=== PATIENT | male | born 1970 | race Caucasian/White ===

== ENCOUNTER 2019-07-09 05:04 | Emergency (ER) | payer SELFPAY ==
[2019-07-09] VITALS (17 sets, daily range): BP systolic 107–144; BP diastolic 69–88; PULSE 62–91; RESP 10–24; TEMP 36.3; O2SAT 80–97
--- NOTE | 2019-07-09 05:00 | DI.CT_ITS ---
EXAM: CT HEAD CERVICAL SPINE WO COMPARISON: No exams were available for comparison FINDINGS: CT examination of the cervical spine was performed without contrast administration. Moderate cervica l kyphosis noted. There is no evidence of acute cervical spine fracture or dislocation. Tracheolaryn geal structures appear intact. No cervical mass or adenopathy. Intervertebral disc spaces are well ma intained. Noncontrast cranial CT was performed. Subcutaneous hematoma noted, left vertex. Ventricular system is normal in appearance. No evidence of acute intracranial hemorrhage, mass effect, or midline shift. No calvarial fracture. The orbital and temporal bone structures appear intact. IMPRESSION: No evidence of acute cervical spine injury. No evidence of acute intracranial injury. RADIATION DOSE DELIVERED: 1,123.51mGy.cm Total DLP DATA REPOSITORY: All CT scans at this facility are submitted to the National Radiology Data Registry (NRDR) Dose Index Registry (DIR) with the [employer] (A[employer]). RADIATION OPTIMIZATION: All CT scans at this facility use at least one of these dose optimization te chniques: automated exposure control; mA and/or kV adjustment per patient size (includes targeted exa ms where dose is matched to clinical indication); or iterative reconstruction.
--- NOTE | 2019-07-09 05:20 | W.ED.GENAD ---
Discharge Plan Disposition Patient Disposition: HOME Condition: Stable Discharge Details Chief Complaint: HeadInjury Clinical Impression: Laceration of head, Fall ED Provider: Cholo Washington Home Meds and New Rx's Prescriptions: Continued pseudoephedrine-guaifenesin [Mucinex D] 60-600 mg Tablet Extended Release 12 Hr 1 tab PO RF: 0 Discharge Instructions Instructions: Staple Care (ED) Additional Instructions: you had ann-marie placed in your scalp. return in 10 days for evaluation for removal if you have yellow/white discharge from the wound or spreading redness return to the emergency department for reevaluation I placed you on our follow up list to get set up with a primary care provider for discussion on evaluation for sleep apnea Medical Decision Making 49 yo male who denies any chronic medical problems comes in with chief complaint of head laceration. The patient was driven in by his friend because he sustained a head laceration. He arrives oriented x4 but takes multiple times asking questions before he answers them and goes off tangentially and then won't answer some questions. He has a 6cm laceration on left side of his head. He denies dyspnea, chest pain, n/v. 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 He states he was on the toilet then walked to the bathroom and slipped hitting his head on the glass shower door. He denies loc. HE states he had a few beers no other drugs. His eyes are pinpoint on exam. No focal motor or sensation deficits. Given his presentation with some alteration in mental status will ct head and c spine and also evaluate for alcohol intoxication and drug intoxication and monitor. ct imqaging and labs unremarkable, he has periods of intermittent falling asleep and will respond to painful stimuli to awaken up. I suspect some form of drug abuse likely opiates based on the pupils. Will monitor here until more alert. pt now awake and caox4. no focal deficits. He was having hypoxia to the 80's when asleep that corrected upon awakening and I suspect he has undiagnosed sleep apnea and to f/u with pcp for this and placed on f/u list to get established with someone in the area for this. Advised to return in 10 days for staple removal, return precautions given Differential Diagnosis Differential Diagnosis: tbi, concussion, alcohol intoxication, drug intoxication Imaging Data Radiologic Study: Attestation: I personally reviewed and interpreted this imaging study as follows: Imaging: CT Scan Radiologist's impression: negative head and c spine ct for acute pathology Lab Data Lab results reviewed: Yes I reviewed the patient's lab results. HPI General Mode of arrival: wheelchair. Date/Time Provider Initiated Documentation: 07/09/19 05:07. Information obtained by: patient. History of Present Illness 49 year old M presents to the emergency department with the chief complaint of head laceration, and is localized to the head. Patient reports no radiation. and it has been constant. No relieving factors improve symptom(s), No exacerbating factors reported . Patient did receive the following treatments prior to arrival, none Related Data Home Medications Medication Instructions Recorded Confirmed pseudoephedrine-guaifenesin 1 tab PO 07/09/19 [Mucinex D] General Stated Complaint: HeadInjury SCOTT: 3 Review of Systems All systems reviewed & are unremarkable except as noted in HPI and below Constitutional Constitutional: Denies chills, Denies fever(s) and Denies weakness Cardiovascular Cardiovascular: Denies chest pain and Denies dyspnea Respiratory Respiratory: Denies cough and Denies dyspnea Gastrointestinal Gastrointestinal: Denies abdominal pain, Denies nausea and Denies vomiting Musculoskeletal Musculoskeletal: Denies joint swelling Neurologic Neurologic: Denies weakness Psychiatric Psychiatric: Denies depression [facility] Medical History (Updated 07/09/19 @ 06:39 by Cholo Washington MD) No acute medical problems (Acute) Social History Smoking/Tobacco Use Status: Never Alcohol Intake: current Alcohol Intake frequency: 0-2 drinks per day Drug use: Socially Substance use type: marijuana Additional Social history: patient is altered, unable to answer Exam Const General: no acute distress Orientation: alert HENAR Head: laceration Ears: external ears normal General nose exam: external nose normal Mouth: moist mucous membranes Eyes General: appearance normal, both eyes and all related structures Neck Neck: normal visual inspection Resp Effort & Inspection: normal respiratory effort and able to speak in complete sentences Cardio Rate: regular rate GI Palpation: soft and nontender Skin General skin exam: no rashes or lesions noted Neuro General: patient alert Extrem General: normal to inspection Psych Mental Status: mental status grossly normal Course Vital Signs Vital signs: Vital Signs Temperature 36.3 C L 07/09/19 05:06 Pulse 86 07/09/19 05:06 Respiratory Rate 18 07/09/19 05:06 Blood Pressure 144/88 H 07/09/19 05:06 Pulse Oximetry 96 07/09/19 05:06 Temperature 36.3 C L 07/09/19 05:06 Temperature Source Skin 07/09/19 05:06 Pulse 86 07/09/19 05:06 Respiratory Rate 18 07/09/19 05:06 Blood Pressure 144/88 H 07/09/19 05:06 Pulse Oximetry 96 07/09/19 05:06 Pain Level 10 07/09/19 05:06 Procedures Laceration Laceration 1: Site: scalp Size (cm): 6 Description: linear Depth: simple, single layer Local Anesthetic: Lidocaine 1% and with Epi Amount of anesthesia used (mL): 10 Pre-repair: wound explored and irrigated extensively Skin layer closed with: other (ann-marie) Number of sutures: 16
[2019-07-09 05:27] LABS: Abs Immature Grans 0.01 k/cumm (0.0-0.09); Absolute Basophil Count 0.04 k/cumm (0.0-0.2); Absolute Eosinophil Count 0.31 k/cumm (0.0-0.7); Absolute Lymphocyte Count 2.51 k/cumm (1.2-3.4); Absolute Monocyte Count 0.69 k/cumm (0.11-0.7); Absolute Neutrophil Count 4.87 k/cumm (1.2-6.7); Basophils % 0.5; Eosinophils % 3.7; HCT 39.2 % (40.0-50.0); HGB 12.9 g/dL (13.5-17.5); Immature Grans % 0.1 %; Lymphocytes % 29.8; Mean Corp. HGB Concentration 32.9 g/dL (32.0-36.0); Mean Corpuscular Hemoglobin 29.9 pg (27.0-33.0); Mean Platelet Volume 9.4 fL (8.0-11.0); Monocytes % 8.2; Neutrophils % 57.7; Platelet Count 273 x1000/uL (130-400); RBC 4.31 m/cumm (4.50-6.00); RBC Distribution Width 12.5 % (11.8-14.1); White Blood Cell Count 8.43 k/cumm (4.4-10.8)
[2019-07-09 05:38] LABS: ALT 32 U/L (16-63); AST 27 U/L (15-37); Albumin 3.7 g/dL (3.4-5.0); Alkaline Phosphatase 90 U/L (46-116); Anion Gap 3.2 mmol/L (3-11); BUN 11 mg/dL (7-18); Bilirubin, Total 0.3 mg/dL (0.2-1.0); CO2 31.8 mmol/L (21.0-32.0); CREATININE 1.01 mg/dL (0.70-1.30); Calcium 8.5 mg/dL (8.5-10.1); Chloride 102 mmol/L (98-107); ETHANOL BLOOD 11.8 mg/dL (<3); Glucose 108 mg/dL (74-106); Magnesium 2.1 mg/dL (1.8-2.4); Potassium 3.7 mmol/L (3.5-5.1); Sodium 137 mmol/L (136-145); Total Protein 6.9 g/dL (6.4-8.2)
[2019-07-09 05:47] LABS: PTT Activated 24.5 sec (21.0-31.4); Prothrombin Time 9.6 sec (9.3-11.0)
--- NOTE | 2019-07-09 06:03 | DI.VRAD_ITS ---
PROCEDURE INFORMATION: Exam: CT Head Without Contrast Exam date and time: 07/09/2019 5:37 AM Age: 49 years old Clinical indication: Injury or trauma; Initial encounter; Patient HX: Fall, head lac, altered mental status TECHNIQUE: Imaging protocol: Computed tomography of the head without contrast. COMPARISON: No relevant prior studies available. FINDINGS: Brain: No acute intracranial hemorrhage, mass-effect, midline shift, or extra-axial collection is seen. The [place] white matter differentiation appears preserved. Ventricles: The ventricular system and basilar cisterns appear appropriate in size and configuration. Bones/joints: The bony calvarium appears intact. No depressed skull fracture is seen. Sinuses: The visualized paranasal sinuses appear well-aerated. Mastoid air cells: The visualized mastoid air cells appear well aerated. Auditory system: The middle ear cavities appear clear. Orbits: The globes and intraorbital structures appear grossly intact. Soft tissues: There is a left posterior scalp contusion with an associated laceration. IMPRESSION: No acute intracranial hemorrhage or depressed skull fracture. PROCEDURE INFORMATION: Exam: CT Cervical Spine Without Contrast Exam date and time: 07/09/2019 5:37 AM Age: 49 years old Clinical indication: Injury or trauma; Initial encounter; Patient HX: Fall, head lac, altered mental status TECHNIQUE: Imaging protocol: Computed tomography images of the cervical spine without contrast. COMPARISON: No relevant prior studies available. FINDINGS: Vertebrae: No acute cervical fracture is seen. There is straightening of the normal cervical lordosis. This can be seen in the presence of a cervical collar or may result from muscle spasm or positioning. Discs/Spinal canal/Neural foramina: There is moderate discogenic degeneration at C3-C4 with loss of disc height, anterior osteophyte formation, and posterior osteophytic ridging but no significant central canal narrowing. Soft tissues: Within the limits of the exam, no gross soft tissue fluid collection is seen in the neck. Thyroid: The thyroid gland is not well evaluated but appears grossly normal in size. Lungs: The lung apices appear grossly clear. IMPRESSION: No acute cervical fracture or gross vertebral malalignment. Dictated and Authenticated by: Jesus Coffman MD. Ordering:SYDNEY Emmanuel MD
[2019-07-09] MEDS: Acetaminophen 500 MG TAB (06:55)
== END 2019-07-09 07:02 | disposition home or self-care (01) ==
LOC: ER 06:57
PROVIDERS: Emergency Provider Emergency Medicine
DX: S01.01XA Laceration without foreign body of scalp, initial encounter (principal); W01.110A Fall on same level from slipping, tripping and stumbling with subsequent striking against sharp glass, initial encounter; Y90.0 Blood alcohol level of less than 20 mg/100 ml
CPT/HCPCS: 12002; 36415; 80053; 99284; 70450; 72125; 80320; 83735; 85025; 85610; 85730; 99283

== ENCOUNTER 2019-07-19 21:04 | Emergency (ER) | payer SELFPAY ==
[2019-07-19 21:20] VITALS: BP 132/86; PULSE 101; RESP 19; TEMP 36.7; O2SAT 96
[2019-07-19] MEDS: Lidocaine 5% Patch 2 PATCH TP (21:31)
--- NOTE | 2019-07-19 21:34 | W.ED.GENAD ---
Discharge Plan Disposition Patient Disposition: HOME Condition: Good Discharge Details Chief Complaint: SutureRem Clinical Impression: Removal of ann-marie, Bilateral contusion of ribs Primary Care Provider: Unknown,Unknown ED Provider: Man Gould Home Meds and New Rx's Prescriptions: New lidocaine [Lidoderm] 1 PATCH patch 1 patch Topical Q24H Qty: 4 RF: 0 No Action pseudoephedrine-guaifenesin [Mucinex D] 60-600 mg Tablet Extended Release 12 Hr 1 tab PO RF: 0 Discharge Instructions Instructions: Rib Contusion (ED) Additional Instructions: The laceration on your scalp has healed extremely well. Do not scratch attic, or apply any significant tension to it, because it is still healing. Keep it clean and dry. You can continue to place triple antibiotic ointment or neomycin on it if you wish. In regards to your ribs the chest x-ray shows no evidence of fracture, however I do suspect that you have notably contused the ribs during the fall which is causing your pain. This does take significant time to heal. Additionally there could be a small fracture that we cannot see. This requires time and healing. Please use the Lidoderm patches to help with your pain, you can continue to take Tylenol and Motrin, a maximum dose of 1000 mg of Tylenol every 6 hours and a maximum dose of 800 mg of ibuprofen every 6 hours. Use the pain pills only as needed, do not take Tylenol with them as they contain some Tylenol in them. If you notice any worsening of your symptoms, or any new symptoms such as vomiting, diarrhea, fever, chills, shortness of breath, chest pain, numbness, weakness, or fainting , please return immediately to the emergency department for reevaluation. Please follow up with your primary care provider as soon as possible for reassessment and reevaluation. As always, it was a pleasure participating in your medical care today. Discharge Data Discharge Date/Time-TO BE ENTERED AT DEPARTURE: 07/19/19 22:12 Medical Decision Making 49-year-old male presents to have removal of his 16 ann-marie from his significant scalp laceration that occurred over a week ago. Scalp is healed remarkably well, no complaints or abnormalities. Patient does complain of mild lateral chest pain on both sides, since the fall, attributes it to rib pain. Exam demonstrates reproducible tenderness over the ribs, no cardiac or exertional component. No history of cardiac disease. Symptoms appear inconsistent with cardiac etiology and clinically consistent with rib contusion. Chest x-ray was ordered, no evidence of acute process or significant displaced rib fracture. Lidoderm patches were given, patient tolerated this well, for [place] to go were given as well. This time I feel the patient will be safely discharged after his ann-marie were removed without complication. Discussed red flags which to return, the importance of Lidoderm patch and NSAIDs. I have extensively reviewed the treatment plan and discharge instructions with the patient. I have addressed all patient concerns at this time. The patient was made aware of what symptoms to monitor for that would warrant a return to the emergency department. Discussed the plan with the patient, they demonstrate verbal understanding and agreement with our assessment and plan at this time. Procedure staple removal: All 16 ann-marie were removed without complication. FINDINGS: Lungs: Right basilar linear atelectasis. Pleural space: No pneumothorax. No sizable pleural effusion. Heart/Mediastinum: No cardiomegaly. Bones/joints: No displaced rib fracture is appreciated. IMPRESSION: No displaced rib fracture is appreciated. Thank you for allowing us to participate in the care of your patient. Dictated and Authenticated by: Toney Castanon MD 07/19/2019 9:58 PM Eastern Time ([place] & [place]) HPI General Date/Time Provider Initiated Documentation: 07/19/19 21:12. HPI Narrative: 49-year-old male presents to have his ann-marie removed. 1 week ago he had 16 ann-marie placed after he got a significant laceration on his scalp. He has been healing well, no complaints of headache. He does admit to mild chest pain that occurs with breathing or when he lies on his chest at night. It happened when he fell a week ago, that has been consistent since then. It improves with pain meds or NSAIDs, he denies any hemoptysis, fever, chills or cough. Tender to palpation. No other complaints at this time. Denies PE risk factors such as recent long car rides, immobilization, recent surgery, prior history of DVT or PE, family history of PE or DVT, morbid obesity, exogenous estrogen and smoking, hemoptysis, history of cancer. No history of cardiac disease. Related Data Home Medications Medication Instructions Recorded Confirmed pseudoephedrine-guaifenesin 1 tab PO 07/09/19 [Mucinex D] lidocaine [Lidoderm] 1 patch TOPICAL Q24H #4 patch 07/19/19 Previous Rx's Medication Instructions Recorded lidocaine [Lidoderm] 1 patch TOPICAL Q24H #4 patch 07/19/19 General Stated Complaint: SutureRem SCOTT: 4 Review of Systems All systems reviewed & are unremarkable except as noted in HPI and below PFSH Medical History No acute medical problems (Acute) Social History Smoking/Tobacco Use Status: Never Alcohol Intake: current Alcohol Intake frequency: 0-2 drinks per day Drug use: Socially Substance use type: marijuana Do you feel safe at home: Yes Do you feel safe in your relationship?: Yes Additional Social history: patient is altered, unable to answer Exam Narrative Exam Narrative: 1.Const: Well-nourished, Well-developed, appearing stated age 2.Eyes: PERRL, no conjunctival injection, and symmetrical lids. 3.ENT: Atraumatic external nose and ears. Moist MM. Neck: Symmetric, trachea midline, No thyromegaly. 4.CVS: +S1/S2, No murmurs or gallops. Peripheral pulses 2+ and equal in all extremities. Brisk capillary refill in all extremities. 5.RESP: Unlabored respiratory effort. Clear to auscultation bilaterally. No wheezes rales or rhonchi, palpation of the lateral ribs bilaterally elicits tenderness, no subcutaneous crepitus. No evidence of significant bruising. 6.GI: Soft, Nontender/Nondistended, No hepatosplenomegaly. No guarding or rebound. 7.MSK: Normocephalic/Atraumatic, Extremities w/o deformity or ttp No cyanosis or clubbing, Normal movement of all extremities 8.Skin: Warm, Dry. No rashes or lesions. The patient's laceration is healed notably well, no bleeding, no evidence of dehiscence abscess or cellulitis. 9.Neuro: rn progressive care II-XII grossly intact. Sensation grossly intact, no focal neurologic deficits. 10.Psych: (AAO) x3. Appropriate mood and affect Course Vital Signs Vital signs: Vital Signs Temperature 36.7 C 07/19/19 21:20 Pulse 101 H 07/19/19 21:20 Respiratory Rate 07/19/19 21:20 Blood Pressure 132/86 07/19/19 21:20 Pulse Oximetry 96 07/19/19 21:20 Temperature 36.7 C 07/19/19 21:20 Temperature Source Temporal Artery Scan 07/19/19 21:20 Pulse 101 H 07/19/19 21:20 Respiratory Rate 07/19/19 21:20 Respiratory Effort 07/19/19 21:30 Blood Pressure 132/86 07/19/19 21:20 Blood Pressure Position Supine 07/19/19 21:20 Pulse Oximetry 96 07/19/19 21:20 Oxygen Delivery Method Room Air 07/19/19 21:20 Oxygen Flow Rate 0 07/19/19 21:20
--- NOTE | 2019-07-19 21:45 | DI.RAD_ITS ---
EXAM: XR CHEST 2V PA LATERAL CLINICAL HISTORY: bilateral lateral rib pain after fall, 1 week ago TECHNIQUE: 2D digital imaging was performed. COMPARISON: No exams were available for comparison FINDINGS: MEDIASTINUM: Normal. HEART: Normal. PULMONARY VASCULATURE: Normal. LUNGS: Plate atelectasis or scarring is seen in the right lung base. PLEURAL SPACE: No pleural effusion or pneumothorax. BONE:No displaced rib fractures are present. OTHER FINDINGS:Normal. IMPRESSION: No definite displaced rib fractures appreciated. If there is continued concern, dedicated rib films may be obtained. DATA REPOSITORY: RADIATION DOSE DELIVERED:
--- NOTE | 2019-07-19 21:58 | DI.VRAD_ITS ---
PROCEDURE INFORMATION: Exam: XR Chest, 2 Views Exam date and time: 07/19/2019 9:45 PM Age: 49 years old Clinical indication: Chest wall pain; Patient HX: Bilateral lateral rib pain after fall in the shower x1 week ago. TECHNIQUE: Imaging protocol: XR of the chest Views: 2 views. COMPARISON: No relevant prior studies available. FINDINGS: Lungs: Right basilar linear atelectasis. Pleural space: No pneumothorax. No sizable pleural effusion. Heart/Mediastinum: No cardiomegaly. Bones/joints: No displaced rib fracture is appreciated. IMPRESSION: No displaced rib fracture is appreciated. Dictated and Authenticated by: Toney Castanon MD. Ordering:ÁNGEL Conway MD
== END 2019-07-19 22:12 | disposition home or self-care (01) ==
PROVIDERS: Emergency Provider Student in an Organized Health Care Education/Training Program
DX: S01.01XD Laceration without foreign body of scalp, subsequent encounter (principal); W01.110D Fall on same level from slipping, tripping and stumbling with subsequent striking against sharp glass, subsequent encounter; Z48.02 Encounter for removal of sutures; R07.81 Pleurodynia; S20.211A Contusion of right front wall of thorax, initial encounter; S20.212A Contusion of left front wall of thorax, initial encounter; W19.XXXA Unspecified fall, initial encounter
CPT/HCPCS: 99283; 71046; 99282